=== PATIENT | male | born 1995 | race African-American/Black ===

== ENCOUNTER 2020-05-07 15:26 | Emergency (ER) | payer OTHER ==
[~2020-05-07] VITALS: Ht 188 cm; Wt 72.7 kg
[2020-05-07] MEDS ORDERED: HYDROCODONE/ACETAMINOPHEN 5-325 MG TABLET PO ONE (15:45)
[2020-05-07] MEDS ORDERED: IBUPROFEN 600 MG TABLET PO ONE (16:00)
[2020-05-07] MEDS ORDERED: KETAMINE HCL 50 MG/ML 10 ML VIAL IVP ONE (16:15)
[2020-05-07] MEDS ORDERED: MORPHINE SULFATE 10 MG/ML SYRINGE IVP ONE (16:15)
[2020-05-07] MEDS ORDERED: LORazepam 2 MG/ML VIAL IVP ONE (18:00)
[2020-05-07] MEDS ORDERED: MORPHINE SULFATE 4 MG/ML SYRINGE IVP ONE (18:00)
[2020-05-07 18:45] VITALS: BP 145/88
== END 2020-05-07 18:47 | disposition left against medical advice (07) ==
LOC: EMS 15:26
DX: S53.124A Posterior dislocation of right ulnohumeral joint, initial encounter (principal); S32.591A Other specified fracture of right pubis, initial encounter for closed fracture; F17.200 Nicotine dependence, unspecified, uncomplicated; V00.131A Fall from skateboard, initial encounter; Y93.89 Activity, other specified; Y92.89 Other specified places as the place of occurrence of the external cause; Y99.8 Other external cause status
CPT/HCPCS: 24600; 73070; 73080; 73110; 73502; 96374; 99152; 99153; 99285; J2270; J3490; J2060